=== PATIENT | male | born 1930 | race Caucasian/White ===

== ENCOUNTER → 2017-07-31 | Outpatient (CLI) | payer BC | LOC: FIMAGING 14:31 | PROVIDERS: ATTEND Physical Medicine & Rehabilitation | DX: M51.36 Other intervertebral disc degeneration, lumbar region (principal); M48.54XA Collapsed vertebra, not elsewhere classified, thoracic region, initial encounter for fracture; E88.2 Lipomatosis, not elsewhere classified; M48.061 Spinal stenosis, lumbar region without neurogenic claudication; M99.73 Connective tissue and disc stenosis of intervertebral foramina of lumbar region; M89.38 Hypertrophy of bone, other site ==

== ENCOUNTER → 2018-01-31 | Outpatient (CLI) | payer BC | LOC: BMCIMAGING 14:30 | PROVIDERS: ATTEND Psychiatry & Neurology Neurology | DX: G45.9 Transient cerebral ischemic attack, unspecified (principal) ==

== ENCOUNTER 2018-03-16 18:41 | Emergency (ER) | payer BC ==
[2018-03-16 19:09] LABS: PLATELET COUNT 268 10^3/uL (150-400)
--- NOTE | 2018-03-16 19:52 | EDPHY ---
H & P Stated Complaint: fall, per ems blurry vision Time Seen by Provider: 03/16/18 18:45 HPI/ROS: CHIEF COMPLAINT: Fall, unable to get up Limitations: Dementia, unable to recall the reason for the fall HISTORY OF PRESENT ILLNESS: 87-year-old male with dementia and hypertension presents after a fall. He may have been dizzy while walking from the bedroom to the kitchen. He thinks that he sat down and then called for help from his . After several minutes, they were unable to get him off the floor. This is not unusual as the patient is usually not able to get up off the floor by himself or even with the assistance of his . 911 called and EMS assisted the patient to standing. No recent illness or injury. He did not hit his head ; no headache or neck pain. REVIEW OF SYSTEMS: complete 10 system ROS reviewed and is negative except as noted in the HPI - Personal History Current Tetanus Diphtheria and Acellular Pertussis (TDAP): Yes Tetanus Vaccine Date: < 10 YEARS - Medical/Surgical History Hx Asthma: No Hx Chronic Respiratory Disease: Yes Hx Diabetes: No Hx Cardiac Disease: No Hx Renal Disease: No Hx Cirrhosis: No Hx Alcoholism: No Hx HIV/AIDS: No Hx Splenectomy or Spleen Trauma: No Other PMH: [employer] shunt, COPD, HTN, hyperlipidemia - Social History Smoking Status: Never smoked Alcohol Use: Sober Additional Social History: - Physical Exam Exam: General Appearance: Alert, pleasant Eyes: Pupils equal and round, no conjunctival pallor or injection ENT, Mouth: Mucous membranes moist Neck: Normal inspection, no tenderness, range of motion without pain Respiratory: Normal inspection, no tenderness, Lungs are clear to auscultation Cardiovascular: Regular rate and rhythm Gastrointestinal: Abdomen is soft and nontender Back: Normal inspection, no midline tenderness Neurological: A&O, nonfocal, normal gait Skin: Warm and dry, abrasion left upper extremity Extremities: Tender over the left upper extremity abrasion, no other tenderness and no pain with range of motion Psychiatric: Mood and affect normal Constitutional: Initial Vital Signs Temperature (C) 36.4 C 03/16/18 18:44 Heart Rate 88 03/16/18 18:44 Respiratory Rate 28 H 03/16/18 18:44 Blood Pressure 118/66 03/16/18 18:44 O2 Sat (%) 92 03/16/18 18:44 O2 Delivery Mode Room Air O2 (L/minute) 2 Allergies/Adverse Reactions: No Known Allergies Allergy (Verified 10/10/12 11:25) Home Medications: Medication Instructions Recorded Aspirin [Aspirin 81mg (OTC)] 81 mg PO DAILY 10/08/12 Budesonide/Formoterol 160/4.5 2 puffs IH DAILY 10/08/12 [Symbicort 160-4.5 Mcg Inhaler] Lisinopril [Zestril 20 mg (RX)] 20 mg PO DAILY 10/08/12 Lovastatin 20 mg PO DAILY 10/08/12 Albuterol [Proventil Inhaler (RX)] 1 - 2 puffs IH Q4-6PRN PRN 10/10/12 Albuterol [Proventil Inhaler (RX)] 2 puffs IH DAILY 10/10/12 Completed By Interlacer 10/10/12 10/10/12 Amlodipine Besylate 01/21/18 Lisinopril 01/21/18 traZODone 01/21/18 Medical Decision Making - Diagnostics EKG Interpretation: EKG interpreted by me reveals normal sinus rhythm, rate 85, left axis deviation , low voltage in the limb leads. Interpretation: Borderline EKG. ED Course/Re-evaluation: This pt presents after a fall, possibly secondary to dizziness. HPI limited d/ t poor short term memory. Pt asymptomatic now, only injury is UE abrasion. EKG reveals no evidence of ischemia or dysrhythmia. Labs unremarkable. I reviewed the patient's medications with his . He has 3 bottles of Norvasc in his medication Ziploc bag. Two of the prescriptions are Norvasc 2.5 mg tablets and the other contains Norvasc 10 mg tablets. I suspect that this patient has inadvertently been taking too much Norvasc and that this caused some dizziness. The patient's well ensure correct dosing of his medications. Will take the 2.5 mg tablets of Norvasc. Check and record BP twice daily. The patient ambulated throughout the emergency department with a steady gait using his walker. No dizziness or other complaints. Differential Diagnosis: Dizziness including but not limited to peripheral and central causes of vertigo , orthostatic causes including dehydration, and blood loss. - Data Points Laboratory Results: Laboratory Results 03/16/18 18:55 03/16/18 18:55 Point of Care Test Results: Chemistry 03/16/18 19:20 POC Troponin I 0.00 ng/mL ng/mL (0.00-0.08) Departure - Departure Disposition: Home, Routine, Self-Care Clinical Impression: Dizziness Condition: Good Instructions: Dizziness (ED) Additional Instructions: Check and record blood pressure twice daily. Take Norvasc 2.5 mg daily. Follow-up with your physician on Sunday or Sunday. Referrals: Delonte Campbell MD [Primary Care Provider] - 2-3 days, call for appt.
[2018-03-16 19:53] VITALS: BP 120/67
--- NOTE | 2018-03-16 21:19 | CPEKG ---
Test Reason : OPEN Blood Pressure : / mmHG Vent. Rate : 085 BPM Atrial Rate : 086 BPM P-R Int : 208 ms QRS Dur : 100 ms QT Int : 393 ms P-R-T Axes : -08 -44 029 degrees QTc Int : 468 ms Sinus rhythm Left axis deviation Low voltage, extremity leads Confirmed by Vianca Carlson ([id number]) on 03/16/2018 9:18:47 PM Referred By: Confirmed By:Vianca Carlson
== END 2018-03-16 20:06 | disposition home or self-care (01) ==
LOC: EDUNIT#
DX: R42 Dizziness and giddiness (principal); S40.819A Abrasion of unspecified upper arm, initial encounter; F03.90 Unspecified dementia, unspecified severity, without behavioral disturbance, psychotic disturbance, mood disturbance, and anxiety; W19.XXXA Unspecified fall, initial encounter; Y92.019 Unspecified place in single-family (private) house as the place of occurrence of the external cause; Y99.8 Other external cause status
CPT/HCPCS: 84484-PO; G0480

== ENCOUNTER → 2018-03-25 | Outpatient (CLI) | payer BC | LOC: BMCIMAGING 11:07 | PROVIDERS: ATTEND Internal Medicine | DX: S22.32XA Fracture of one rib, left side, initial encounter for closed fracture (principal) ==

== ENCOUNTER → 2018-09-02 | Outpatient (CLI) | payer BC | LOC: BMCIMAGING 10:51 | PROVIDERS: ATTEND Internal Medicine | DX: R06.00 Dyspnea, unspecified (principal) ==